=== PATIENT | male | born 1950 | race Two or more races ===

== ENCOUNTER → 2018-01-07 | Emergency (ER) | payer MEDICARE ==
[~2018-01-07] VITALS: Ht 160 cm; Wt 77.1 kg
[~2018-01-07] MED LIST: ATHLETE'S FOOT15 G1 TOPIC; IBUPROFEN600 MG ORAL
--- NOTE | 2018-01-07 13:24 | Emergency Room Report ---
History of Present Illness General Chief Complaint: Lower Extremity Injury Source: Patient Present Illness HPI 67-year-old male patient presents ER complaining of right heel pain. Patient reports "spot" in his right heel. States has been there for 5 months. Reports the ER today because it became more painful. Reports has not been taking any medication for relief of symptoms. Denies stepping on any foreign object or nail. Reports pain with ambulation, states he has been able to ambulate during this time however. Denies pain in other part of foot. Denies itching or burning sensation. Allergies: Coded Allergies: No Known Allergies (Unverified , 01/07/18) Patient History Past Medical History: see triage record Reviewed Nursing Documentation: PMH: Agreed; PSxH: Agreed Nursing Documentation-PMH Past Medical History: No Stated History Review of Systems All Other Systems: negative except mentioned in HPI Physical Exam Vital Signs Date Time Temp Pulse Resp B/P (MAP) Pulse Ox O2 Delivery O2 Flow Rate FiO2 01/07/18 12:41 98.3 65 18 120/72 98 Room Air 98.2 Sp02 EP Interpretation: reviewed, normal General Appearance: well appearing, no apparent distress, alert, GCS 15, non- toxic Head: normocephalic, atraumatic Eyes: bilateral eye normal inspection, bilateral eye PERRL ENT: hearing grossly normal, normal pharynx, no angioedema, normal voice, uvula midline, moist mucus membranes Neck: full range of motion Respiratory: lungs clear, normal breath sounds, no rhonchi, no respiratory distress, no accessory muscle use, no wheezing, speaking full sentences Cardiovascular #1: regular rate, rhythm, no edema Cardiovascular #2: 2+ dorsalis pedis (R), 2+ dorsalis pedis (L) Musculoskeletal: back normal, digits/nails normal, gait/station normal, normal range of motion, non-tender Psychiatric: mood/affect normal Skin: other - 1cm callused and avulsed skin on right heel, mild TTP, no surrounding erythema or edema; scaling and crusting of skin on right foot noted , no vesicles, no erythema Medical Decision Making PA Attestation Dr. Marks is my supervising Physician whom patient management has been discussed with. Diagnostic Impression: Primary Impression: Callus of heel Additional Impression: Tinea pedis ER Course Pt. presents to the ED c/o pain on right heel. Ddx considered but are not limited to fracture, sprain, strain, contusion, dislocation. No erythema, no warmth to touch, no fever, nontoxic appearing, low suspicion for septic joint. Vital signs: are WNL, pt. is afebrile Ordered X-ray and pain medication. ER COURSE Provided with pain medication. An X-ray of the right foot shows no acute fracture or retained FB per the preliminary reading. Consult with Dr. Marks, likely avulsed skin on plantar aspect of foot that hardened and callused over time. Informed patient to attempt to remove skin with callus remover and shave it down at home. Does not require emergent intervention in the ER. On physical exam also noted dry scaling plaque, likely tinea pedis, will provide patient with patient to treat infection. Follow-up with primary care provider and discuss referral to podiatry as needed. Patient instructed on RICE method: rest, ice, compression, elevation. Patient instructed to be WBAT Followup with primary care provider. Discuss referral to derm as needed. DISCHARGE: -Rx provided for Terbinafine for athlete's foot infection -Rx provided for Ibuprofen for pain At this time pt. is stable for d/c to home. Patient is resting comfortably, in no acute distress, nontoxic appearing, talking without difficulty. Will provide printed patient care instructions, and any necessary prescriptions. Patient instructed to follow with primary care provider in 3 - 5 days and to request further follow-up as needed. Care plan and follow up instructions have been discussed with the patient prior to discharge. Take medications as directed. Patient questions asked and answered. Patient reports understanding and agreement to treatment plan. ER precautions given, patient instructed to return to ER immediately for any new or worsening of symptoms. - Please note that this Emergency Department Report was dictated using [employer] technology software, occasionally this can lead to erroneous entry secondary to interpretation by the dictation equipment. Other X-Ray Diagnostic Results Other X-Ray Diagnostic Results : X-Ray ordered: right foot # of Views/Limited Vs Complete: 3 View Indication: Pain EP Interpretation: Yes PA Xray: Interpretation reviewed, by supervising MD, and agrees with findings. Interpretation: no dislocation, no soft tissue swelling, no fractures, other - calcaneal spur, no FB Impression: No acute disease INDRA Scribe Text Freddy Neil PA-C Last Vital Signs Date Time Temp Pulse Resp B/P (MAP) Pulse Ox O2 Delivery O2 Flow Rate FiO2 01/07/18 12:41 98.3 65 18 120/72 98 Room Air 98.2 Disposition: HOME, SELF-CARE Condition: Stable Scripts Ibuprofen* (MOTRIN*) 600 Mg Tablet 600 MG ORAL Q8H PRN for For Pain, #30 TAB 0 Refills Prov: Seven Neil 01/07/18 Terbinafine Hcl (ATHLETE'S FOOT AF) 15 Gm Cream..g. 1 APPLIC TOPIC DAILY for 7 Days, #15 GM Prov: Seven Neil 01/07/18 Patient Instructions: Athlete's Foot, [id number], Corns and Calluses Additional Instructions: Followup with primary care provider in 3 -5 days. Use callus remover to help remove callus on heel. Keep feet clean and dry. Take medications as directed. Patient questions asked and answered. ER precautions given, patient instructed to return to ER immediately for any new or worsening of symptoms. Seven Neil Jan 07, 2018 13:24
[2018-01-07 13:56] VITALS: BP 120/72
--- NOTE | 2018-01-08 13:25 | Diagnostic Imaging Report ---
Indication: Pain Technique: XRAY Foot Complete R Comparison: None FINDINGS/IMPRESSION: * Curvilinear fragment along the lateral base of the fifth metatarsal may represent a subtle age indeterminate avulsion fracture. Correlate with site of point tenderness. * Small plantar calcaneal spur. * Accessory ossicle medial and posterior to the navicular. * No radiopaque foreign body. This corresponds with the [facility] preliminary report.
== END | disposition home or self-care (01) ==
LOC: EMR 13:00
DX: L84 Corns and callosities (principal); B35.3 Tinea pedis; M77.31 Calcaneal spur, right foot